=== PATIENT | female | born 1975 | race Hispanic/Latino ===

== ENCOUNTER 2023-07-11 14:08 | Inpatient (IN) | payer BC ==
[~2023-07-11] VITALS: Ht 154.9 cm; Wt 31.5 kg
[2023-07-11 15:04] LABS: BASOPHILS # (AUTO) 0.08 K/uL (0.00-0.20); BASOPHILS % (AUTO) 1.2 % (0.0-5.0); EOSINOPHILS # (AUTO) 0.24 K/uL (0.00-0.70); EOSINOPHILS % (AUTO) 3.5 % (0.0-8.0); IMMATURE GRANULOCYTE ABSOLUTE 0.17 K/uL (0-1); LYMPHOCYTES # (AUTO) 2.4 K/uL (1.0-4.8); MEAN CORPUSCULAR HEMOGLOBIN 31.2 pg (27.0-33.0); MEAN CORPUSCULAR HGB CONC 34.3 g/dL (32.0-36.0); MEAN CORPUSCULAR VOLUME 90.9 fL (79-99); MONOCYTES # (AUTO) 0.8 K/uL (0.1-1.0); MONOCYTES % (AUTO) 11.2 % (3.0-13.0); NEUTROPHILS # (AUTO) 3.3 K/uL (1.8-7.7); NEUTROPHILS % (AUTO) 47.7 % (40.0-77.0); PLATELET COUNT (AUTO) 202 K/uL (130-400); RED BLOOD CELL COUNT(AUTO) 4.84 MIL/uL (4.00-5.50); RED CELL DISTRIBUTION WIDTH 13.3 % (11.0-15.5)
[2023-07-11 15:20] LABS: CREATININE 1.1 mg/dL (0.5-1.0); POTASSIUM 3.6 mmol/L (3.5-5.1)
[2023-07-11 15:24] LABS: ALBUMIN 3.4 g/dL (3.5-5.0); BILIRUBIN,TOTAL 0.5 mg/dL (0.2-1.0); TOTAL PROTEIN, SERUM 7.4 g/dL (6.0-8.3)
[2023-07-11] MEDS: KETOROLAC 30MG VIAL (30MG/ML) IVP ONE (17:56)
[2023-07-11] MEDS: 0.9%NACL 1000ML 1,000 ML IV ONE (17:56)
[2023-07-11 18:37] LABS: APPEARANCE,URINE CLEAR (CLEAR); BILIRUBIN,URINE NEGATIVE (NEGATIVE); COLOR,URINE LIGHT-YELLOW (YELLOW); GLUCOSE, URINE (UA) >=1000 mg/dL (NEGATIVE); KETONES,URINE 150 mg/dL (NEGATIVE); LEUKOCYTE ESTERASE ,URINE NEGATIVE Leu/uL (NEGATIVE); NITRATE,URINE NEGATIVE (NEGATIVE); OCCULT BLOOD,URINE NEGATIVE (NEGATIVE); PH,URINE 5.5 (5.0-8.0); PROTEIN,URINE 30 mg/dL (NEGATIVE); UROBILINOGEN,URINE 0.2 mg/dL (0.2-1.0)
[2023-07-11 18:38] LABS: ADD UA MICROSCOPIC YES
[2023-07-11 18:39] LABS: MUCUS,URINE RARE LPF (None Seen); RBC,URINE 0-1 /HPF (0-1); SQUAMOUS EPITHELIAL CELL,UR FEW /HPF (0-2)
[2023-07-11] MEDS: INSULIN HUMULIN R 100 UNIT/ML 3ML IV SCH (18:54)
[2023-07-11 19:00] VITALS: O2SAT 97
[2023-07-11 19:16] LABS: ABG BASE EXCESS -11.3 mmol/L (-2.0-3.0); ABG HCO3 13.5 mmol/L (21.0-28.0); ABG OXYGEN SATURATION 95.3 % (95.0-99.0); ABG PCO2 28 mmHg (32-45); DEVICE COMMENT ROOM AIR; PO2, ARTERIAL BG 82.5 mmHg (83.0-108.0); VENT MODE, BG ROOM AIR (ROOM AIR)
[2023-07-11] MEDS: KCL 20 MEQ ERTAB PO SCH (19:37)
[2023-07-11] MEDS ORDERED: ONDANSETRON 4MG INJ IV PRN (20:00)
[2023-07-11] MEDS: INSULIN REGULAR, HUMAN 3ML 100 UNIT in 0.9%NACL 100ML 99 ML IV SCH (20:10)
[2023-07-11 20:13] LABS: CREATININE 0.9 mg/dL (0.5-1.0); POTASSIUM 3.3 mmol/L (3.5-5.1)
[2023-07-11] MEDS: INSULIN REGULAR, HUMAN 3ML 100 UNIT in 0.9%NACL 100ML 100 ML IV SCH (20:17)
[2023-07-11] MEDS: 0.9%NACL 1000ML 1,000 ML IV SCH (20:19)
[2023-07-11] MEDS: FAMOTIDINE 20MG VIAL IV SCH (21:38)
[2023-07-11] MEDS: LACTATED RINGERS 1000ML IV SCH (22:29)
[2023-07-11 22:54] VITALS: BP 126/67; PULSE 89; RESP 14
[2023-07-11 23:09] VITALS: BP 130/74; PULSE 88; RESP 14
[2023-07-11 23:24] VITALS: BP 149/87; PULSE 86; RESP 15
[2023-07-11 23:40] VITALS: BP 142/87; PULSE 87; RESP 18
[2023-07-11 23:54] VITALS: BP 153/83; PULSE 85; RESP 10
[2023-07-11 23:54] LABS: CREATININE 0.7 mg/dL (0.5-1.0); POTASSIUM 3.2 mmol/L (3.5-5.1)
[2023-07-12] VITALS (36 sets, daily range): BP systolic 104–159; BP diastolic 52–88; PULSE 74–85; RESP 10–23; O2SAT 96–99
[2023-07-12] MEDS: POTASSIUM CHLORIDE 10MEQ/100ML 100 ML IV PRN (00:15)
[2023-07-12] MEDS: D5W-1/2 NS/20MEQ KCL 1,000 ML IV SCH (00:15)
[2023-07-12 01:54] LABS: HEMOGLOBIN A1C 13.5 % (4.0-6.0)
[2023-07-12 04:35] LABS: BASOPHILS # (AUTO) 0.05 K/uL (0.00-0.20); BASOPHILS % (AUTO) 0.6 % (0.0-5.0); EOSINOPHILS # (AUTO) 0.31 K/uL (0.00-0.70); EOSINOPHILS % (AUTO) 3.7 % (0.0-8.0); HEMATOCRIT 39.4 % (36-48); IMMATURE GRANULOCYTE ABSOLUTE 0.13 K/uL (0-1); LYMPHOCYTES # (AUTO) 2.8 K/uL (1.0-4.8); LYMPHOCYTES % (AUTO) 34.1 % (21.0-51.0); MEAN CORPUSCULAR HEMOGLOBIN 32.1 pg (27.0-33.0); MEAN CORPUSCULAR HGB CONC 34.8 g/dL (32.0-36.0); MEAN CORPUSCULAR VOLUME 92.3 fL (79-99); MONOCYTES # (AUTO) 1.2 K/uL (0.1-1.0); NEUTROPHILS # (AUTO) 3.8 K/uL (1.8-7.7); PLATELET COUNT (AUTO) 162 K/uL (130-400); RED BLOOD CELL COUNT(AUTO) 4.27 MIL/uL (4.00-5.50); RED CELL DISTRIBUTION WIDTH 13.3 % (11.0-15.5); WHITE BLOOD COUNT (AUTO) 8.3 K/uL (4.8-10.8)
[2023-07-12 05:12] LABS: CREATININE 0.7 mg/dL (0.5-1.0); POTASSIUM 3.3 mmol/L (3.5-5.1); THYROID STIMULATING HORMONE 2.14 uIU/mL (0.36-3.74)
[2023-07-12 10:31] LABS: CREATININE 0.7 mg/dL (0.5-1.0); POTASSIUM 3.6 mmol/L (3.5-5.1)
[2023-07-12] MEDS: INSULIN GLARGINE 100 UNITS/ML 10 ML VIAL SQ SCH (10:33)
[2023-07-12] MEDS: MAGNESIUM 2GM PREMIX 50ML 50 ML IV SCH (11:30)
[2023-07-12] MEDS: INSULIN HUMULIN R 100 UNIT/ML 3ML SQ SCH (11:30)
[2023-07-12] MEDS ORDERED: TIRZ5PEN SQ (11:49)
[2023-07-12] MEDS ORDERED: MULT-1203 PO (11:49)
[2023-07-12] MEDS ORDERED: PIOG30TA70 PO (11:49)
[2023-07-12] MEDS ORDERED: INSU100V37 SQ (11:49)
[2023-07-12] MEDS ORDERED: LEVO25CA4 PO (11:49)
[2023-07-12] MEDS ORDERED: ATOR10TA69 PO (11:49)
[2023-07-12] MEDS ORDERED: INSULIN GLARGINE 100 UNITS/ML 10 ML VIAL SQ SCH (21:00)
[2023-07-13] VITALS (7 sets, daily range): BP systolic 93–117; BP diastolic 42–68; PULSE 76–83; RESP 18–20; O2SAT 97
[2023-07-13] MEDS: ACETAMINOPHEN 325 MG TAB PO PRN (12:01)
[2023-07-13] MEDS ORDERED: ATORVASTATIN 40 MG TABLET PO SCH (21:00)
[2023-07-14] VITALS: BP 112/59; PULSE 76; RESP 18
[2023-07-14 04:00] VITALS: BP 115/64; PULSE 78; RESP 18
[2023-07-14 07:35] VITALS: BP 117/73; PULSE 82; RESP 20
[2023-07-14] MEDS: INSULIN GLARGINE 100 UNITS/ML 10 ML VIAL SQ SCH (09:29)
[2023-07-14] MEDS ORDERED: INSU100V37 SQ (11:37)
[2023-07-14 11:49] VITALS: BP 123/68; PULSE 79; RESP 20
[2023-07-14 11:55] VITALS: O2SAT 96
[2023-07-14 13:05] VITALS: TEMP 98.2
== END 2023-07-14 14:45 | disposition home or self-care (01) | DRG 638 ==
LOC: EDH 14:08 → EDHIP 19:37 → 2BH 21:53 → 4DH 07-12 16:00
PROVIDERS: ADMIT Hospitalist; ATTEND Hospitalist
DX: E11.10 Type 2 diabetes mellitus with ketoacidosis without coma (principal); E87.1 Hypo-osmolality and hyponatremia; N17.9 Acute kidney failure, unspecified; Z68.1 Body mass index [BMI] 19.9 or less, adult; E86.0 Dehydration; E03.9 Hypothyroidism, unspecified; E78.1 Pure hyperglyceridemia; E66.9 Obesity, unspecified; K59.00 Constipation, unspecified; Z79.4 Long term (current) use of insulin; Z91.199 Patient's noncompliance with other medical treatment and regimen due to unspecified reason; Z79.84 Long term (current) use of oral hypoglycemic drugs; Z90.49 Acquired absence of other specified parts of digestive tract
CPT/HCPCS: 36415; 36600; 73502; 80048; 80053; 80061; 81001; 82010; 82803; 82948; 83036; 83605; 83690; 83735; 84443; 84478; 85025; 96374; 96375; 96376; G0378; J1815; J1885; J3475; J3480; J3490